=== PATIENT | female | born 1995 | race Caucasian/White ===

== ENCOUNTER 2017-11-16 02:56 | Emergency (ER) | payer OTHER ==
[2017-11-16] MEDS ORDERED: Ibuprofen 800 MG TAB ONE (04:06)
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
== END 2017-11-16 05:28 | disposition home or self-care (01) ==
LOC: ERS 02:56
DX: S20.212A Contusion of left front wall of thorax, initial encounter (principal); F90.9 Attention-deficit hyperactivity disorder, unspecified type; V89.2XXA Person injured in unspecified motor-vehicle accident, traffic, initial encounter
CPT/HCPCS: 71046